=== PATIENT | male | born 1975 ===

== ENCOUNTER 2022-03-14 13:30 | Emergency (ER) | payer BC ==
[2022-03-14] MEDS ORDERED: LIDOCAINE 1% MPF 5 ML VIAL ONE (14:46)
[2022-03-14 15:30] VITALS: O2SAT 99
[2022-03-14 15:34] VITALS: BP 118/75; TEMP 97.9
--- NOTE | 2022-03-16 09:32 | ER ---
Nurse's Notes [facility] Name: Jett Santiago Age: 46 yrs Sex: Male : 1975 Arrival Date: 03/14/2022 Time: 13:34 Bed 10 Private MD: Diagnosis: Laceration of the Left Upper Extremity Presentation: 03/14 13:46 Chief complaint: Patient states: pt presented to ed reporting laceration to left bazan forearm. Coronavirus screen: Vaccine status: Patient reports receiving the 2nd dose of the covid vaccine. Ebola Screen: Patient denies travel to an Ebola-affected area in the 21 days before illness onset. Initial Sepsis Screen: Does the patient meet any 2 criteria? No. Patient's initial sepsis screen is negative. Does the patient have a suspected source of infection? No. Patient's initial sepsis screen is negative. Risk Assessment: Do you want to hurt yourself or someone else? Patient reports no desire to harm self or others. Onset of symptoms was March 14, 2022. 13:46 Method Of Arrival: Ambulatory bazan 13:46 Method Of Arrival: Ambulatory bazan 13:46 Acuity: CORINNE 4 bazan Historical: - Allergies: 15:10 No Known Allergies; ph - Home Meds: 13:48 None [Active]; bazan - PSHx: 13:48 None; bazan - Immunization history:: Adult Immunizations Last tetanus immunization: up to date. - Social history:: Smoking status: Patient denies any tobacco usage or history of. Screenin:08 Abuse screen: Denies threats or abuse. Denies injuries from another. Nutritional ph screening: No deficits noted. Tuberculosis screening: No symptoms or risk factors identified. Fall Risk None identified. Assessment: 15:07 General: Appears in no apparent distress. comfortable, slender, well groomed, Behavior ph is calm, cooperative, appropriate for age. Pain: Denies pain. Neuro: Level of Consciousness is awake, alert, obeys commands, Oriented to person, place, time, situation. Cardiovascular: Capillary refill < 3 seconds in bilateral fingers Patient's skin is warm and dry. Respiratory: Airway is patent Respiratory effort is even, unlabored. Derm: Skin is pink, warm \T\ dry. Musculoskeletal: Circulation, motion, and sensation intact. Range of motion: intact in all extremities. Injury Description: Laceration sustained to dorsal aspect of left forearm is clean, superficial, 0.5 to 2.5 cm long. Vital Signs: 13:46 BP 126 / 81; Pulse 66; Resp 17; Temp 98.1(T); Pulse Ox 99% on R/A; Weight 81.65 kg; bazan Height 6 ft. 1 in. (185.42 cm); 15:10 BP 118 / 75; Pulse 61; Resp 18; Temp 97.9; Pulse Ox 99% on R/A; ph 13:46 Body Mass Index 23.75 (81.65 kg, 185.42 cm) bazan ED Course: 13:34 Patient arrived in ED. am2 13:36 Vu Du PA is PHCP. [facility] 13:36 Tong Kline MD is Attending Physician. [facility] 13:48 Triage completed. bazan 14:50 Assist provider with laceration repair on dorsal aspect of left forearm that was 2.5 ph cm. or less using sutures. Set up tray. Performed by Vu DENSON Dressed with band aid, Patient tolerated well. Patient did not have IV access during this emergency room visit. 14:51 Michelle Souza, RN is Primary Nurse. ph 15:09 Patient has correct armband on for positive identification. Bed in low position. Call ph light in reach. Side rails up X 1. Pulse ox on. NIBP on. Door closed. Noise minimized. 15:10 Arm band placed on Patient placed in an exam room. ph Administered Medications: 14:55 Drug: Lidocaine (1 %) 20 ml Volume: 20 ml; Route: Infiltration; ph 14:57 Follow up: Response: No adverse reaction ph Medication: 15:09 VIS not applicable for this client. ph Outcome: 14:58 Discharge ordered by . shaylee 15:10 Discharged to home ambulatory. ph 15:10 Condition: good 15:10 Discharge instructions given to patient, Instructed on discharge instructions, follow up and referral plans. wound care, Demonstrated understanding of instructions, follow-up care, wound care. 15:11 Patient left the ED. ph Signatures: Vu Du PA PA jmm Hall, Patricia, RN ZAHRA Jeanne Tran am2 Shelley-StagerMayuri RN RN
--- NOTE | 2022-03-16 09:32 | EDPHYS ---
Physician Documentation [facility] Name: Jett Santiago Age: 46 yrs Sex: Male : 1975 Arrival Date: 03/14/2022 Time: 13:34 Bed 10 Private MD: ED Physician Tong Kline HPI: 03/14 14:07 This 46 yrs old Male presents to ER via Ambulatory with complaints of Arm Injury. jm 14:07 The patient or guardian complains of. This is a 46 year old male with no chronic [facility] medical condition that presents to the ED with complaints of a laceration to his left forearm. Patient states his arm was injured while attempting to grab a spinning handle. Patient is unsure on tetanus immunizations. . Historical: - Allergies: 15:10 No Known Allergies; ph - Home Meds: 13:48 None [Active]; bazan - PSHx: 13:48 None; bazan - Immunization history:: Adult Immunizations Last tetanus immunization: up to date. - Social history:: Smoking status: Patient denies any tobacco usage or history of. ROS: 14:07 Constitutional: Negative for fever, chills, and weight loss, Cardiovascular: Negative jmm for chest pain, palpitations, and edema, Respiratory: Negative for shortness of breath, cough, wheezing, and pleuritic chest pain. 14:07 Skin: Positive for laceration(s). 14:07 All other systems are negative. Exam: 14:07 Constitutional: This is a well developed, well nourished patient who is awake, alert, jmm and in no acute distress. Head/Face: atraumatic. Eyes: EOMI, no conjunctival erythema appreciated ENT: Moist Mucus Membranes Neck: Trachea midline, Supple Chest/axilla: Normal chest wall appearance and motion. Cardiovascular: Regular rate and rhythm. No edema appreciated Respiratory: Normal respirations, no respiratory distress appreciated Abdomen/GI: Non distended Back: Normal ROM 14:07 Skin: 1 cm laceration noted to the left forearm, no active bleeding. 14:07 Neuro: Orientation: is normal, Mentation: is normal, Memory: is normal. 14:07 Psych: Behavior/mood is pleasant, cooperative. Vital Signs: 13:46 BP 126 / 81; Pulse 66; Resp 17; Temp 98.1(T); Pulse Ox 99% on R/A; Weight 81.65 kg; bazan Height 6 ft. 1 in. (185.42 cm); 15:10 BP 118 / 75; Pulse 61; Resp 18; Temp 97.9; Pulse Ox 99% on R/A; ph 13:46 Body Mass Index 23.75 (81.65 kg, 185.42 cm) bazan Laceration: 14:52 Wound Repair of 1cm ( 0.4in ) subcutaneous laceration to left arm. Distal jmm neuro/vascular/tendon intact. Anesthesia: Local anesthetic administered with 5 mls of 1% lidocaine. Wound prep: Simple cleansing with betadine by me. Skin closed with 2 5-0 Prolene using simple sutures and sterile technique. Patient tolerated well. MDM: 14:07 Patient medically screened. [facility] 14:52 Data reviewed: vital signs, nurses notes. [facility] 14:55 Counseling: I had a detailed discussion with the patient and/or guardian regarding: the [facility] historical points, exam findings, and any diagnostic results supporting the discharge/admit diagnosis, the need for outpatient follow up, to return to the emergency department if symptoms worsen or persist or if there are any questions or concerns that arise at home. ED course: Patient given wound infection return precautions. patient understood and agrees with the plan of care. . Administered Medications: 14:55 Drug: Lidocaine (1 %) 20 ml Volume: 20 ml; Route: Infiltration; ph 14:57 Follow up: Response: No adverse reaction ph Disposition: 16:14 Co-signature as Attending Physician, Tong Kline MD. rn Disposition Summary: 03/14/22 14:58 Discharge Ordered Location: Home [facility] Condition: Stable [facility] Diagnosis - Laceration of the Left Upper Extremity [facility] Followup: [facility] - With: Private Physician - When: 2 - 3 days - Reason: Recheck today's complaints, Continuance of care, Re-evaluation by your physician Discharge Instructions: - Discharge Summary Sheet [facility] - Laceration Care, Adult [facility] Forms: - Medication Reconciliation Form [facility] - Thank You Letter [facility] - Antibiotic Education [facility] - Prescription Opioid Use [facility] Signatures: Vu Du PA PA jmm Nieto, Roman, MD MD rn Hall, Patricia, RN RN [facility]-Mayuri Huffman RN RN
== END 2022-03-14 15:11 | disposition home or self-care (01) ==
LOC: ER 13:30
PROC: 0JQH0ZZ Repair Left Lower Arm Subcutaneous Tissue and Fascia, Open Approach (ICD-10-PCS; principal; 2022-03-14)
DX: S51.812A Laceration without foreign body of left forearm, initial encounter (principal)
CPT/HCPCS: 99283